=== PATIENT | female | born 1960 | race Hispanic/Latino ===

== ENCOUNTER 2020-03-08 18:39 | Inpatient (IN) | payer OTHER ==
[2020-03-08 19:24] LABS: Hemoglobin 14.6 g/dL (14.0-18.0); Mean Corpuscular HGB CONC 32.2 g/dL (32.0-36.0); Mean Corpuscular Hemoglobin 30.9 pg (27.0-31.0); Mean Corpuscular Volume 96.1 fL (78.0-98.0); Mean Platelet Volume 9.6 fL (7.4-10.4); Platelet Count 183 thou/uL (130-400); RBC Distribution Width 12.7 % (11.5-14.5); Red Blood Cell (RBC) Count 4.72 mill/uL (4.70-6.10); White Blood Cell (WBC) Count 3.9 thou/uL (4.8-10.8)
--- NOTE | 2020-03-08 19:24 | RAD ---
Portable frontal chest radiograph: 03/08/2020 COMPARISON: None HISTORY: Short of breath FINDINGS: Extensive interstitial and alveolar opacity noted in the perihilar regions and both lung ba ses, left greater than right. No pneumothorax or large volume pleural effusion. IMPRESSION: Perihilar and bibasilar interstitial prominence suggesting multi lobar pneumonia in the [facility] clinical setting. Findings may be related to Covid 19.
[2020-03-08 19:40] LABS: Band 7 % (5-11); Lymphocytes 36 % (21-51); MDiff Complete? YES; Monocytes 2 % (0-10); Neutrophil 54 % (42-75); Platelet Morphology Comment Appears Adequate; RBC Morphology Normal; Reactive Lymphocytes 1 % (0-10)
[2020-03-08] MEDS ORDERED: Acetaminophen 325 MG TAB PO PRN (19:41)
[2020-03-08 19:42] LABS: ALT (SGPT) 31 U/L (8-55); AST (SGOT) 65 U/L (5-34); Albumin 3.5 g/dL (3.5-5.0); Alkaline Phosphatase 81 U/L (40-110); Anion Gap 15 mmol/L (10-20); BUN (Urea Nitrogen) 14 mg/dL (8.4-25.7); Bilirubin, Total 0.6 mg/dL (0.2-1.2); Calc. Creatinine Clearance 0 mL/min (70-130); Calcium 8.5 mg/dL (7.8-10.44); Carbon Dioxide 25 mmol/L (22-29); Chloride 98 mmol/L (98-107); Estimated GFR-MDRD Greater than 90; Globulin 4.6 g/dL (2.4-3.5); Glucose 159 mg/dL (70-105); Potassium 4.6 mmol/L (3.5-5.1); Protein, Total 8.1 g/dL (6.0-8.3); Sodium 133 mmol/L (136-145)
[2020-03-08] MEDS ORDERED: Acetaminophen 650 MG Suppository PR PRN (22:21)
[2020-03-08 23:09] VITALS: BMI 37.7
[2020-03-08] MEDS: Famotidine 20 MG TAB PO SCH (23:14)
[2020-03-08] MEDS: cefTRIAXone\\ROCEPHIN 1 GM in Sodium Chloride 0.9% 100 ML IVPB SCH (23:14)
[2020-03-08] MEDS: Sodium Chloride 0.9% 1,000 ML IV SCH (23:14)
[2020-03-08] MEDS: Azithromycin 500 MG in Sodium Chloride 0.9% 250 ML 250 ML IVPB SCH (23:47)
[2020-03-09 05:29] LABS: Hemoglobin 13.7 g/dL (12.0-16.0); Mean Corpuscular HGB CONC 32.1 g/dL (32.0-36.0); Mean Corpuscular Hemoglobin 31.3 pg (27.0-31.0); Mean Corpuscular Volume 97.6 fL (78.0-98.0); Mean Platelet Volume 7.8 fL (7.4-10.4); Platelet Count 211 thou/uL (130-400); RBC Distribution Width 12.6 % (11.5-14.5); Red Blood Cell (RBC) Count 4.36 mill/uL (4.20-5.40); White Blood Cell (WBC) Count 3.3 thou/uL (4.8-10.8)
[2020-03-09 05:30] LABS: Band 8 % (5-11); Lymphocytes 50 % (21-51); MDiff Complete? YES; Monocytes 3 % (0-10); Neutrophil 39 % (42-75); Platelet Morphology Comment Appears Adequate
[2020-03-09 05:39] LABS: ALT (SGPT) 28 U/L (8-55); AST (SGOT) 52 U/L (5-34); Albumin 3.2 g/dL (3.5-5.0); Alkaline Phosphatase 74 U/L (40-110); Anion Gap 11 mmol/L (10-20); BUN (Urea Nitrogen) 14 mg/dL (9.8-20.1); Bilirubin, Total 0.4 mg/dL (0.2-1.2); Calc. Creatinine Clearance 117 mL/min (70-130); Calcium 8.2 mg/dL (7.8-10.44); Carbon Dioxide 31 mmol/L (22-29); Chloride 100 mmol/L (98-107); Estimated GFR-MDRD 78; Globulin 3.6 g/dL (2.4-3.5); Glucose 100 mg/dL (70-105); Potassium 3.9 mmol/L (3.5-5.1); Protein, Total 6.8 g/dL (6.0-8.3); Sodium 138 mmol/L (136-145)
--- NOTE | 2020-03-09 06:30 | HP ---
CHIEF COMPLAINT: Shortness of breath. HISTORY OF PRESENT ILLNESS: Ms. Mclain is a 59-year-old female with past medical history of hypertension, presents to the emergency room with shortness of breath for the last 2 days associated with fever and cough. Workup in the emergency room, patient was hypoxic with oxygen saturation 88% on room air. Placed on nasal cannula. Denies abdominal pain, vomiting, or diarrhea. Chest x-ray showed bilateral interstitial and perihilar infiltrates suggesting multilobar pneumonia, COVID-19 infection, viral is suspected. Septic workup done in the ED. COVID-19 swab was done in the emergency room. The patient was placed on oxygen. The patient is being admitted to the hospital for pneumonia, ? viral, hypoxic respiratory failure. PAST MEDICAL HISTORY: Hypertension. PAST SURGICAL HISTORY: Colon polyp. SOCIAL HISTORY: No history of smoking, alcohol drinking, or drug abuse. FAMILY HISTORY: Reviewed and noncontributory. ALLERGIES: NO KNOWN ALLERGIES. HOME MEDICATIONS: Please see home medication reconciliation form for updated medications. REVIEW OF SYSTEMS: Review of 14 systems negative except what is mentioned in history of present illness. PHYSICAL EXAMINATION: GENERAL: The patient is awake, alert, in moderate respiratory distress, tachypneic. VITAL SIGNS: Blood pressure 136/77, pulse 86. Oxygen saturation was 88% on room air. Currently, it is 96% on 2 L/minute nasal cannula. Respiratory rate is 28, pulse is 90. HEAD AND NECK: Normocephalic, atraumatic. NECK: Supple. CHEST: Respirations are labored, decreased air entry bilaterally. HEART: S1, S2. Regular. ABDOMEN: Soft, nontender. Bowel sounds present. NEUROLOGIC: Awake, alert. No focal deficits. PSYCHIATRIC: Psych unable to assess. EXTREMITIES: No clubbing, no cyanosis. GENITOURINARY: No suprapubic tenderness. No flank tenderness. MUSCULOSKELETAL: No joint deformity. No joint tenderness. LABORATORY DATA: WBC count is low at 3.9. The differential is still pending. Complete metabolic panel is still pending at the time of this dictation. Chest x-ray as mentioned above in history of present illness. ASSESSMENT AND PLAN: 1. Acute hypoxic respiratory failure. 2. Pneumonia, viral, suspected COVID-19 infection. 3. Leukopenia. 4. Hypertension. PLAN: 1. Admit. 2. Oxygen to keep saturation more than 92%. 3. Septic workup done in the ED, COVID-19 swab done. 4. Oxygen to keep saturation more than 94%. 5. We will start the patient on IV antibiotics, cannot rule out superimposed bacterial infection. 6. Reconcile home medications. 7. DVT prophylaxis as appropriate. 8. Expected length of stay, 2 midnights or more. Job ID: [id number]
[2020-03-09] MEDS: Enoxaparin Sodium 40 MG/0.4 ML SYRINGE SC SCH (08:36)
[2020-03-09] MEDS: Sodium Chloride 0.9% 1,000 ML IV SCH ×2 (08:36→19:35)
[2020-03-09] MEDS: Famotidine 20 MG TAB PO SCH ×2 (08:36→19:36)
[2020-03-09] MEDS ORDERED: Cefepime 2 GM in Sodium Chloride 0.9% 100 ML IVPB SCH (09:00)
[2020-03-09] MEDS ORDERED: Vancomycin HCl 1 GM in Sodium Chloride 0.9% 250 ML 300 ML IVPB SCH (09:00)
[2020-03-09 10:43] LABS: SARS-CoV-2 MS2 Positive; SARS-CoV-2 N Gene Positive; SARS-CoV-2 S Gene Positive; SARS-CoV-2 orf1ab Positive
--- NOTE | 2020-03-09 14:43 | PDOC.HOSPP ---
- Subjective Encounter Date: 03/09/20 Encounter Time: 13:00 Subjective: The patient reports feeling very tired. She also complains of dizziness when she tries to stand up to walk. She has mild productive cough with phlegm, no significant congestion. She reports her spouse and another relative tested positive for coronavirus The patient states her symptoms have been going on for 8 days - Objective Vital Signs & Weight: Vital Signs (12 hours) Temp Pulse Resp BP Pulse Ox 03/09/20 12:00 98.8 F 68 24 H 121/67 94 L 03/09/20 08:36 98.2 F 67 26 H 120/72 92 L 03/09/20 03:45 98.9 F 71 16 112/66 99 Weight Admit Weight 199 lb 8 oz Weight 199 lb 8 oz I&O: 03/08/20 03/09/20 03/10/20 06:59 06:59 06:59 Intake Total 1580 Balance 1580 Result Diagrams: 03/09/20 04:53 03/09/20 04:53 Hospitalist ROS - Medication Medications: Active Medications Generic Name Dose Route Start Last Admin Trade Name Wilmerq PRN Reason Stop Dose Admin Enoxaparin Sodium 40 mg 03/09/20 09:00 03/09/20 08:36 Lovenox SC 40 mg 0900 ZOË Administration Famotidine 20 mg 03/08/20 21:00 03/09/20 08:36 Pepcid PO 20 mg BID ZOË Administration Azithromycin 500 mg/ Sodium 250 mls @ 250 mls/hr 03/08/20 21:00 03/08/20 23: 47 Chloride IVPB 250 mls Q24HR ZOË Administration Ceftriaxone Sodium 1 gm/ 100 mls @ 200 mls/hr 03/08/20 20:00 03/08/20 23:14 Sodium Chloride IVPB 100 mls Q24HR ZOË Administration Sodium Chloride 1,000 mls @ 100 mls/hr 03/08/20 22:30 03/09/20 08:36 Normal Saline 0.9% IV 1,000 mls .Q10H ZOË Administration - Exam General Appearance: NAD, awake alert Eye: PERRL, anicteric sclera ENT: normocephalic atraumatic, no oropharyngeal lesions Neck: no JVD Heart: RRR, no murmur, no gallops, no rubs Respiratory: CTAB, no wheezes, no rales Gastrointestinal: soft, non-tender, non-distended, normal bowel sounds Extremities: no cyanosis, no clubbing, no edema Hosp A/P - Plan This is a 59 year old female who presented with multilobar pneumonia #Acute hypoxic respiratory failure secondary to multilobar pneumonia #COVID + #Leukopenia secondary to COVID - chest X ray shows multifocal pneumonia. Patient is COVID + - continue ceftriaxone and azithromycin. WBC 3.3 - blood cultures negative. Check sputum culture - wean oxygen saturation to 92% Dizziness - check orthostatics - continue IV fluids - PT evaluation Transaminitis - downtrending, continue to monitor Hyponatremia - resolved Code status: full code
[2020-03-09] MEDS: cefTRIAXone\\ROCEPHIN 1 GM in Sodium Chloride 0.9% 100 ML IVPB SCH (19:35)
[2020-03-09] MEDS: Azithromycin 500 MG in Sodium Chloride 0.9% 250 ML 250 ML IVPB SCH (22:00)
[2020-03-10 06:13] LABS: Hemoglobin 12.9 g/dL (12.0-16.0); Mean Corpuscular HGB CONC 32.5 g/dL (32.0-36.0); Mean Corpuscular Hemoglobin 31.8 pg (27.0-31.0); Mean Corpuscular Volume 97.6 fL (78.0-98.0); Mean Platelet Volume 8.2 fL (7.4-10.4); Platelet Count 207 thou/uL (130-400); RBC Distribution Width 12.5 % (11.5-14.5); Red Blood Cell (RBC) Count 4.07 mill/uL (4.20-5.40); White Blood Cell (WBC) Count 2.9 thou/uL (4.8-10.8)
[2020-03-10 06:34] LABS: Anion Gap 11 mmol/L (10-20); BUN (Urea Nitrogen) 8 mg/dL (9.8-20.1); Calc. Creatinine Clearance 143 mL/min (70-130); Calcium 7.8 mg/dL (7.8-10.44); Carbon Dioxide 25 mmol/L (22-29); Chloride 108 mmol/L (98-107); Estimated GFR-MDRD Greater than 90; Glucose 85 mg/dL (70-105); Potassium 3.9 mmol/L (3.5-5.1); Sodium 140 mmol/L (136-145)
[2020-03-10] MEDS: Sodium Chloride 0.9% 1,000 ML IV SCH ×2 (07:54→23:27)
[2020-03-10] MEDS: Enoxaparin Sodium 40 MG/0.4 ML SYRINGE SC SCH ×2 (07:55→19:23)
[2020-03-10] MEDS: Famotidine 20 MG TAB PO SCH ×2 (07:55→19:23)
[2020-03-10 12:35] LABS: PTT 46.3 sec (22.9-36.1); Prothrombin Time 12.7 sec (12.0-14.7)
[2020-03-10 12:36] LABS: D-Dimer Test 1.21 *mcg/mL (0.27-0.43)
[2020-03-10] MEDS ORDERED: Non-Formulary Item 1 EACH in Sodium Chloride 0.9% 250 ML 210 ML IV SCH (13:00)
--- NOTE | 2020-03-10 14:04 | PDOC.HOSPP ---
- Subjective Encounter Date: 03/10/20 Encounter Time: 11:40 Subjective: pt seen -- she is resting, hypoxic when comes off O2. 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 COVID +ve, talk to Dr. Vernon will dc IV abx -starting her on Remdesivir. - Objective Vital Signs & Weight: Vital Signs (12 hours) Temp Pulse Resp BP BP Pulse Ox 03/10/20 11:35 98.2 F 63 24 H 154/85 H 94 L 03/10/20 07:55 98.5 F 62 20 156/88 H 94 L 03/10/20 03:46 97.8 F 63 18 136/80 95 Weight Admit Weight 199 lb 8 oz Weight 199 lb 8 oz I&O: 03/09/20 03/10/20 03/11/20 06:59 06:59 06:59 Intake Total 1580 2180 Balance 1580 2180 Result Diagrams: 03/10/20 05:45 03/10/20 05:45 Hospitalist ROS - Medication Medications: Active Medications Generic Name Dose Route Start Last Admin Trade Name Freq PRN Reason Stop Dose Admin Famotidine 20 mg 03/08/20 21:00 03/10/20 07:55 Pepcid PO 20 mg BID ZOË Administration Sodium Chloride 1,000 mls @ 100 mls/hr 03/08/20 22:30 03/10/20 07:54 Normal Saline 0.9% IV 1,000 mls .Q10H ZOË Administration Non-Formulary Medication 1 250 mls @ 250 mls/hr 03/10/20 13:00 03/10/20 13:52 each/ Sodium Chloride IV 03/10/20 13:59 250 mls ONE ZOË Administration - Exam General Appearance: NAD, awake alert Eye: PERRL ENT: normocephalic atraumatic Respiratory: normal chest expansion Psychiatric: A&O x 3 Hosp A/P - Plan #Acute hypoxic respiratory failure secondary to multilobar pneumonia #COVID + #Leukopenia secondary to COVID -transamitis - chest X ray shows multifocal pneumonia. Patient is COVID + - started remdesivir, lovenox -no need for CTX, zithro - blood cultures negative. Check sputum culture --fw on LFT, coag, d-dimer and Cr level - wean oxygen saturation to 92% -clinical monitoring on sats closely. -appreciate mary alice ehlp from DR. Vernon - if she is clinically degression, will consult him. Dizziness - check orthostatics - continue IV fluids - PT evaluation Hyponatremia - resolved Code status: full code
--- NOTE | 2020-03-10 21:41 | CON ---
DATE OF CONSULTATION: 03/10/2020 REASON FOR CONSULTATION: COVID-19 pneumonia. HISTORY OF PRESENT ILLNESS: A 59-year-old, who has a history of obesity and colon polyps removed, who developed persistent cough, some dyspnea since Thursday before last. So she was eventually evaluated together with her elderly relatives with home she lives in [place] and all three tested positive for COVID and she developed worsening dyspnea, was admitted. On admission; her temperature was 100.5, O2 saturations were 90% on room air, and respiratory rate was 28. She had bilateral pulmonary infiltrates. On arrival, she was given azithromycin and Rocephin, so this is the seventh day after development of symptoms, seventh to going on the eighth day. Still coughing, but not as much. No headaches. She has a lack of taste or anosmia, some dyspnea. No chest pain. No abdominal pain. Some diarrhea. No genitourinary symptoms. No joint symptoms. Myalgias are noticeable. PAST MEDICAL HISTORY: Obesity, colon polyps, and hypertension. 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 Never smoker. ALLERGIES: NONE. MEDICATIONS: Had been on losartan. CURRENT MEDICATIONS: 1. She has been on Rocephin and azithromycin, which has been discontinued and she is currently started on Remdesivir. 2. Also on Lovenox. 3. Pepcid. PHYSICAL EXAMINATION: VITAL SIGNS: T-max 98.5, blood pressure 148/81, pulse 61, respirations 20 to 24 , O2 saturations on 2 L 94% to 95%. GENERAL: Does appear in distress. She was able to speak in full sentences. SKIN: No skin lesions. No lymphadenopathy. HEENT: Ocular movements conjugate. Oral cavity normal. NECK: Supple. LUNGS: With a few faint crackles in both lung mckeon. HEART: S1 and S2. Regular rate. No S3 or S4. ABDOMEN: Soft and not distended or tender. No ascites. No bladder distention. EXTREMITIES: No joint inflammatory activity. Moves extremities equally. LABORATORY DATA: White cell count is 3.9 on arrival, hemoglobin 14.6, and platelets 183 and now white cell count of 2.9, hemoglobin 12.9, and platelets 207. D- dimer is 1.21 today first time it was measured and the ferritin is 283 and CRP first time measured was 4.40. COVID-19 was positive. Two sets of blood cultures, no growth 48 hours and the chest x-ray with perihilar bibasilar interstitial prominence, multilobar pneumonia likely. ASSESSMENT AND PLAN: Hypertension, obesity, and COVID-19 pneumonia. She has a moderately severe process with O2 saturations less than 93 on room air. Some elevation in inflammatory markers and D-dimer. The patient has been started on Remdesivir and will follow through the protocol. Discontinue azithromycin and Rocephin. Monitor inflamm markers and D-dimer, Osats. Job ID: [id number] [facility]
[2020-03-11] MEDS ORDERED: Benzonatate 100 MG CAP PO PRN (01:06)
[2020-03-11] MEDS ORDERED: Acetaminophen 650 MG Suppository PR PRN (01:07)
[2020-03-11] MEDS ORDERED: Acetaminophen 325 MG TAB PO PRN (01:07)
[2020-03-11 05:01] LABS: D-Dimer Test 1.08 *mcg/mL (0.27-0.43); Prothrombin Time 12.7 sec (12.0-14.7)
[2020-03-11 05:07] LABS: ALT (SGPT) 36 U/L (8-55); AST (SGOT) 51 U/L (5-34); Alkaline Phosphatase 72 U/L (40-110); Bilirubin, Direct 0.2 mg/dL (0.1-0.3); Bilirubin, Total 0.4 mg/dL (0.2-1.2); CRP (Inflammatory) 3.54 mg/dL (= or < 0.5); Protein, Total 6.4 g/dL (6.0-8.3)
[2020-03-11] MEDS: Famotidine 20 MG TAB PO SCH ×2 (08:22→19:26)
[2020-03-11] MEDS: Enoxaparin Sodium 40 MG/0.4 ML SYRINGE SC SCH ×2 (08:23→19:25)
[2020-03-11] MEDS: Sodium Chloride 0.9% 1,000 ML IV SCH ×3 (09:39→21:45)
[2020-03-11] MEDS: Non-Formulary Item 1 EACH in Sodium Chloride 0.9% 250 ML 230 ML IV SCH (12:21)
[2020-03-11] MEDS: hydrALAZINE 20 MG/ML VIAL SLOW IVP PRN (12:33)
[2020-03-11] MEDS ORDERED: hydrALAZINE 25 MG TAB PO SCH ×2 (15:00→15:30)
--- NOTE | 2020-03-11 15:27 | PDOC.HOSPP ---
- Subjective Encounter Date: 03/11/20 Encounter Time: 03:00 Subjective: pt seen, still she does not have mask on her. 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 Northern Irish speaking only. She has mild short of breath when getting up to use the rest room, and some cough. otherwise feels good. - Objective Vital Signs & Weight: Vital Signs (12 hours) Temp Pulse Resp BP BP Pulse Ox 03/11/20 12:33 57 L 03/11/20 12:00 97.8 F 56 L 18 167/85 H 97 03/11/20 08:00 97.9 F 57 L 20 181/85 H 95 03/11/20 04:06 94 L 03/11/20 03:50 98 F 58 L 19 150/83 H 96 Weight Admit Weight 199 lb 8 oz Weight 199 lb 8 oz I&O: 03/10/20 03/11/20 03/12/20 06:59 06:59 06:59 Intake Total 2180 3939 Balance 2180 3939 Result Diagrams: 03/10/20 05:45 03/10/20 05:45 Hospitalist ROS - Medication Medications: Active Medications Generic Name Dose Route Start Last Admin Trade Name Freq PRN Reason Stop Dose Admin Enoxaparin Sodium 40 mg 03/10/20 21:00 03/11/20 08:23 Lovenox SC 40 mg BID ZOË Administration Famotidine 20 mg 03/08/20 21:00 03/11/20 08:22 Pepcid PO 20 mg BID ZOË Administration Hydralazine HCl 10 mg 03/11/20 10:32 03/11/20 12:33 Apresoline SLOW IVP 10 mg Q4H PRN Administration Blood Pressure SBP>150 Sodium Chloride 1,000 mls @ 100 mls/hr 03/08/20 22:30 03/11/20 09:39 Normal Saline 0.9% IV 1,000 mls .Q10H ZOË Administration Non-Formulary Medication 1 250 mls @ 250 mls/hr 03/11/20 13:00 03/11/20 12:21 each/ Sodium Chloride IV 03/14/20 13:59 250 mls Q24H ZOË Administration Sodium Chloride 10 ml 03/10/20 21:00 03/11/20 08:23 Flush - Normal Saline IVF 10 ml Q12HR ZOË Administration - Exam General Appearance: NAD, awake alert Eye: PERRL Neck: symmetric Respiratory: normal chest expansion Psychiatric: normal affect, normal behavior, A&O x 3 Hosp A/P - Plan #Acute hypoxic respiratory failure secondary to multilobar pneumonia #COVID + #Leukopenia secondary to COVID -transamitis - chest X ray shows multifocal pneumonia. Patient is COVID + - started remdesivir, lovenox -no need for CTX, zithro - blood cultures negative. Check sputum culture --fw on LFT, coag, d-dimer and Cr level - wean oxygen saturation to 92% -clinical monitoring on sats closely. -appreciate mary alice ehlp from DR. Vernon - if she is clinically degression, will consult him. Dizziness - check orthostatics - continue IV fluids - PT evaluation Hyponatremia - resolved 31st sats 97% with 2 Lil O2 PTT and d-dimer level trending down. Leukopenia getting worse. -cw current treatment of remdesivir -guaifenesin -am labs for PTT, d-dimer, CRP, LFT. -Dr. Vernon following w.. us. HTN - BP up -PRN not helping -scheduled hydralazine tid. Code status: full code
[2020-03-11] MEDS: guaiFENesin 200 MG TAB PO SCH ×2 (18:50→19:26)
[2020-03-11] MEDS: hydrALAZINE 25 MG TAB PO SCH (19:26)
[2020-03-12] MEDS: guaiFENesin 200 MG TAB PO SCH ×6 (02:30→20:44)
[2020-03-12] MEDS: hydrALAZINE 20 MG/ML VIAL SLOW IVP PRN (04:16)
[2020-03-12 05:32] LABS: Band 4 % (5-11); Hemoglobin 14.1 g/dL (12.0-16.0); Lymphocytes 68 % (21-51); MDiff Complete? YES; Mean Corpuscular HGB CONC 33.1 g/dL (32.0-36.0); Mean Corpuscular Hemoglobin 31.9 pg (27.0-31.0); Mean Corpuscular Volume 96.6 fL (78.0-98.0); Monocytes 2 % (0-10); Neutrophil 26 % (42-75); Platelet Count 128 thou/uL (130-400); Platelet Morphology Comment Appears Adequate; RBC Distribution Width 12.3 % (11.5-14.5); RBC Morphology Normal; Red Blood Cell (RBC) Count 4.41 mill/uL (4.20-5.40)
[2020-03-12] MEDS: Enoxaparin Sodium 40 MG/0.4 ML SYRINGE SC SCH ×2 (08:53→20:44)
[2020-03-12] MEDS: Famotidine 20 MG TAB PO SCH ×2 (08:53→20:45)
[2020-03-12] MEDS: hydrALAZINE 25 MG TAB PO SCH ×3 (08:54→20:44)
[2020-03-12] MEDS: Non-Formulary Item 1 EACH in Sodium Chloride 0.9% 250 ML 230 ML IV SCH (12:40)
--- NOTE | 2020-03-12 15:21 | PDOC.HOSPP ---
- Subjective Encounter Date: 03/12/20 Encounter Time: 15:10 Subjective: pt seen and she is talking in the phone. tentative discharge plan of been told. she understands [mauritanian only] - Objective Vital Signs & Weight: Vital Signs (12 hours) Temp Pulse Resp BP BP Pulse Ox 03/12/20 13:02 73 03/12/20 12:00 96.8 F L 68 28 H 160/86 H 93 L 03/12/20 08:54 73 03/12/20 08:00 98.0 F 75 24 H 164/89 H 93 L 03/12/20 04:44 73 140/81 03/12/20 04:16 77 03/12/20 04:10 98.2 F 70 14 165/91 H 96 Weight Admit Weight 199 lb 8 oz Weight 199 lb 8 oz I&O: 03/11/20 03/12/20 03/13/20 06:59 06:59 06:59 Intake Total 3939 1600 Balance 3939 1600 Result Diagrams: 03/12/20 04:49 03/10/20 05:45 Hospitalist ROS - Medication Medications: Active Medications Generic Name Dose Route Start Last Admin Trade Name Freq PRN Reason Stop Dose Admin Acetaminophen 650 mg 03/11/20 01:07 03/12/20 12:46 Tylenol PO 650 mg Q4H PRN Administration Headache/Fever/Mild Pain (1-3) Enoxaparin Sodium 40 mg 03/10/20 21:00 03/12/20 08:53 Lovenox SC 40 mg BID ZOË Administration Famotidine 20 mg 03/08/20 21:00 03/12/20 08:53 Pepcid PO 20 mg BID ZOË Administration Guaifenesin 200 mg 03/11/20 17:00 03/12/20 12:39 Organ-I Nr PO 03/13/20 17:01 200 mg Q4HR ZOË Administration Hydralazine HCl 10 mg 03/11/20 10:32 03/12/20 04:16 Apresoline SLOW IVP 10 mg Q4H PRN Administration Blood Pressure SBP>150 Hydralazine HCl 37.5 mg 03/11/20 21:00 03/12/20 13:02 Apresoline PO 37.5 mg TID ZOË Administration Sodium Chloride 1,000 mls @ 100 mls/hr 03/08/20 22:30 03/11/20 21:45 Normal Saline 0.9% IV 1,000 mls .Q10H ZOË Administration Non-Formulary Medication 1 250 mls @ 250 mls/hr 03/11/20 13:00 03/12/20 12:40 each/ Sodium Chloride IV 03/14/20 13:59 250 mls Q24H ZOË Administration Sodium Chloride 10 ml 03/10/20 21:00 03/12/20 08:53 Flush - Normal Saline IVF 10 ml Q12HR ZOË Administration - Exam General Appearance: NAD, awake alert Neck: symmetric Respiratory: normal chest expansion Psychiatric: A&O x 3 Hosp A/P - Plan #Acute hypoxic respiratory failure secondary to multilobar pneumonia #COVID + #Leukopenia secondary to COVID -transamitis - chest X ray shows multifocal pneumonia. Patient is COVID + - started remdesivir, lovenox -no need for CTX, zithro - blood cultures negative. Check sputum culture --fw on LFT, coag, d-dimer and Cr level - wean oxygen saturation to 92% -clinical monitoring on sats closely. -appreciate mary alice ehlp from DR. Vernon - if she is clinically degression, will consult him. Dizziness - check orthostatics - continue IV fluids - PT evaluation Hyponatremia - resolved sats 97% with 2 Lil O2 PTT and d-dimer level trending down. Leukopenia getting worse. -cw current treatment of remdesivir -guaifenesin -am labs for PTT, d-dimer, CRP, LFT. -Dr. Vernon following w.. us. HTN - BP up -PRN not helping -scheduled hydralazine tid. Code status: full code 1st i believe remdesvir infusion until . consistently persistent leukopenia -ordered for am, ptt, sofy and crp for routine monitoring.
--- NOTE | 2020-03-12 15:32 | PRG ---
DATE OF SERVICE: 03/12/2020 SUBJECTIVE: Doing well. Coughing less. No dyspnea. No headaches. No diarrhea. OBJECTIVE: VITAL SIGNS: She has been afebrile, O2 saturations are 93 with 2 L nasal cannula. LUNGS: Clear. HEART: S1 and S2, regular rate. ABDOMEN: Soft, not distended. LABORATORY DATA: White cell count 3.0, hemoglobin 14, and platelets 128. Liver panel fairly unremarkable. Ferritin is at 254. D-dimer 1.08. C-reactive protein is at 3.54. DISCUSSION: This is going to be her second day of remdesivir. I have discussed with the patient remdesivir emergency use authorization and obtained her consent to administer the drug yesterday. I explained the potential side effects, particularly in terms of liver toxicity, as well as the benefits, particularly the reduction in event of illness. There is a potential mortality benefit as well, but that has not yet been proven beyond reasonable doubt. She understood and agreed with the medication administration. Job ID: [id number]
[2020-03-12] MEDS: Sodium Chloride 0.9% 1,000 ML IV SCH (17:26)
--- NOTE | 2020-03-12 18:14 | PQF ---
CLINICAL DOCUMENTATION IMPROVEMENT CLARIFICATION FORM: ICD-10 Updated PLEASE DO AN ADDENDUM TO THE PROGRESS NOTE WITH ANY DOCUMENTATION UPDATES OR ADDITIONS AND CARRY THROUGH TO DC SUMMARY. THANK YOU. DATE: 03/12/2020 ATTN: Dr. Cooney Please exercise your independent, professional judgment in responding to the clarification form. Clinical indicators are provided on the bottom of this form for your review Please check appropriate box(es): [ ] Sepsis present on admission [ ] Sepsis NOT present on admission [ ] Unable to determine Due to: [ ] Severe sepsis present on admission [ ] Severe Sepsis NOT present on admission [ ] Unable to determine with acute organ dysfunction of: [ ] Localized infection without sepsis [ x] Other diagnosis _penumonia and stable -- could not code for sepsis -- inflammatory syndrome [ ] Unable to determine For continuity of documentation, please document condition throughout progress notes and discharge summary. Thank You. CLINICAL INDICATORS - SIGNS / SYMPTOMS / LABS / RESULTS AND LOCATION IN MR ER Record 03/08: VS: Temp. 100.5, Resp 23. O2 sat 90 on Room Air H&P 03/08: pt was hypoxic with oxygen saturation 88% on RA Lab: WBC 3.9 A/P: Acute hypoxic respiratory failure. Pneumonia viral, suspected COVID-19 infection. Septic workup done in ED 03/11 ([place]) Acute hypoxic respiratory failure secondary to multilobar pneumonia COVID + RISKS: H&P 03/08: Acute hypoxic respiratory failure. Pneumonia. 03/10 ([place]) Hypertension, obesity and COVID-19 pneumonia. TREATMENT: Order 03/08: Resp: O2 to keep sats 94 % Order 03/08-03/10: Zithromax 500mg IV q 24 hr ID Consult: 03/10 MAR 03/10: Remdesivir 100mg IV q 24 hr Thank you, Shayy (This form is maintained as a part of the permanent medical record) 2014 [employer]. All Rights Reserved Shayy Purvis RN, BSN [email or web address] [employer] [facility]
[2020-03-13] MEDS: Sodium Chloride 0.9% 1,000 ML IV SCH ×3 (00:41→16:16)
[2020-03-13] MEDS: guaiFENesin 200 MG TAB PO SCH ×5 (00:41→16:18)
[2020-03-13 04:50] LABS: #Lymphocytes 1.7 thou/uL (1.20-3.40); #Monocytes 0.3 thou/uL (0.11-0.59); #Neutrophils 1.9 thou/uL (1.40-6.50); %Basophils 0.9 % (0.0-1.0); %Eosinophils 0.5 % (0.0-10.0); %Lymphocytes 43.2 % (21.0-51.0); %Monocytes 6.2 % (0.0-10.0); %Neutrophils 49.1 % (42.0-75.0); Hemoglobin 13.9 g/dL (12.0-16.0); Mean Corpuscular HGB CONC 32.7 g/dL (32.0-36.0); Mean Platelet Volume 8.3 fL (7.4-10.4); Platelet Count 299 thou/uL (130-400); RBC Distribution Width 12.6 % (11.5-14.5); Red Blood Cell (RBC) Count 4.47 mill/uL (4.20-5.40); White Blood Cell (WBC) Count 3.9 thou/uL (4.8-10.8)
[2020-03-13 04:57] LABS: Anion Gap 11 mmol/L (10-20); BUN (Urea Nitrogen) 6 mg/dL (9.8-20.1); Calc. Creatinine Clearance 143 mL/min (70-130); Calcium 8.2 mg/dL (7.8-10.44); Carbon Dioxide 26 mmol/L (22-29); Chloride 104 mmol/L (98-107); Estimated GFR-MDRD Greater than 90; Glucose 106 mg/dL (70-105); Potassium 3.3 mmol/L (3.5-5.1); Sodium 138 mmol/L (136-145)
[2020-03-13 05:04] LABS: ALT (SGPT) 29 U/L (8-55); AST (SGOT) 34 U/L (5-34); Albumin 3.2 g/dL (3.5-5.0); Alkaline Phosphatase 68 U/L (40-110); Bilirubin, Direct 0.3 mg/dL (0.1-0.3); Bilirubin, Total 0.5 mg/dL (0.2-1.2); Protein, Total 6.7 g/dL (6.0-8.3)
[2020-03-13] MEDS: hydrALAZINE 25 MG TAB PO SCH ×3 (07:51→20:21)
[2020-03-13] MEDS: Famotidine 20 MG TAB PO SCH ×2 (07:52→20:20)
[2020-03-13] MEDS: Enoxaparin Sodium 40 MG/0.4 ML SYRINGE SC SCH ×2 (07:52→20:21)
[2020-03-13] MEDS ORDERED: Potassium Chloride 20 MEQ TAB PO SCH (08:00)
[2020-03-13 08:35] LABS: INR-International Normal Ratio 1.1; Prothrombin Time 14.5 sec (12.0-14.7)
[2020-03-13] MEDS: Non-Formulary Item 1 EACH in Sodium Chloride 0.9% 250 ML 230 ML IV SCH (13:46)
--- NOTE | 2020-03-13 15:34 | PDOC.HOSPP ---
- Subjective Encounter Date: 03/13/20 Encounter Time: 15:30 Subjective: pt doing well, as before, talking in the phone. not in any respi distress. ambulating without sob. crp trending down. - Objective Vital Signs & Weight: Vital Signs (12 hours) Temp Pulse Resp BP Pulse Ox 03/13/20 12:00 97.6 F 78 16 146/81 H 96 03/13/20 08:00 97.0 F L 76 20 137/86 97 03/13/20 04:10 97.6 F 78 20 138/80 94 L Weight Admit Weight 199 lb 8 oz Weight 199 lb 8 oz I&O: 03/12/20 03/13/20 03/14/20 06:59 06:59 06:59 Intake Total 1600 2720 Balance 1600 2720 Result Diagrams: 03/13/20 04:15 03/13/20 04:15 Hospitalist ROS - Medication Medications: Active Medications Generic Name Dose Route Start Last Admin Trade Name Freq PRN Reason Stop Dose Admin Acetaminophen 650 mg 03/11/20 01:07 03/12/20 12:46 Tylenol PO 650 mg Q4H PRN Administration Headache/Fever/Mild Pain (1-3) Enoxaparin Sodium 40 mg 03/10/20 21:00 03/13/20 07:52 Lovenox SC 40 mg BID ZOË Administration Famotidine 20 mg 03/08/20 21:00 03/13/20 07:52 Pepcid PO 20 mg BID ZOË Administration Guaifenesin 200 mg 03/11/20 17:00 03/13/20 07:53 Organ-I Nr PO 03/13/20 17:01 200 mg Q4HR ZOË Administration Hydralazine HCl 10 mg 03/11/20 10:32 03/12/20 04:16 Apresoline SLOW IVP 10 mg Q4H PRN Administration Blood Pressure SBP>150 Hydralazine HCl 37.5 mg 03/11/20 21:00 03/13/20 07:51 Apresoline PO 37.5 mg TID ZOË Administration Sodium Chloride 1,000 mls @ 100 mls/hr 03/08/20 22:30 03/13/20 12:31 Normal Saline 0.9% IV Not Given .Q10H ZOË Non-Formulary Medication 1 250 mls @ 250 mls/hr 03/11/20 13:00 06/02/20 13:46 each/ Sodium Chloride IV 03/14/20 13:59 250 mls Q24H ZOË Administration Sodium Chloride 10 ml 03/10/20 21:00 03/13/20 08:10 Flush - Normal Saline IVF Not Given Q12HR ZOË - Exam General Appearance: NAD, awake alert Eye: PERRL ENT: normocephalic atraumatic Neck: supple Respiratory: normal chest expansion Neurological: no focal deficits Psychiatric: normal affect, normal behavior, A&O x 3 Hosp A/P - Plan #Acute hypoxic respiratory failure secondary to multilobar pneumonia #COVID + #Leukopenia secondary to COVID -transamitis - chest X ray shows multifocal pneumonia. Patient is COVID + - started remdesivir, lovenox -no need for CTX, zithro - blood cultures negative. Check sputum culture --fw on LFT, coag, d-dimer and Cr level - wean oxygen saturation to 92% -clinical monitoring on sats closely. -appreciate mary alice ehlp from DR. Vernon - if she is clinically degression, will consult him. Dizziness - check orthostatics - continue IV fluids - PT evaluation Hyponatremia - resolved sats 97% with 2 Lil O2 PTT and d-dimer level trending down. Leukopenia getting worse. -cw current treatment of remdesivir -guaifenesin -am labs for PTT, d-dimer, CRP, LFT. -Dr. Vernon following w.. us. HTN - BP up -PRN not helping -scheduled hydralazine tid. Code status: full code 1st i believe remdesvir infusion until 3rd. consistently persistent leukopenia -ordered for am, ptt, sofy and crp for routine monitoring. 2nd - will dc O2 by [place] and monitor her pulse ox closely - will get d-dimer, crp and ferritin for 4th. -last day for remdesivir infusion - -pt has been informed that likely to be discharged on or thursday if she cont'd to be stable.
[2020-03-13] MEDS ORDERED: guaiFENesin 200 MG TAB PO PRN (17:30)
[2020-03-14] MEDS: Sodium Chloride 0.9% 1,000 ML IV SCH ×2 (02:39→14:32)
[2020-03-14 04:57] LABS: Band 9 % (5-11); Eosinophils 1 % (0-10); Hemoglobin 13.8 g/dL (12.0-16.0); Lymphocytes 7 % (21-51); MDiff Complete? YES; Mean Corpuscular HGB CONC 34.6 g/dL (32.0-36.0); Mean Corpuscular Hemoglobin 33.1 pg (27.0-31.0); Mean Corpuscular Volume 95.5 fL (78.0-98.0); Mean Platelet Volume 7.8 fL (7.4-10.4); Monocytes 4 % (0-10); Neutrophil 79 % (42-75); Platelet Count 285 thou/uL (130-400); Platelet Morphology Comment Appears Adequate; RBC Distribution Width 12.6 % (11.5-14.5); RBC Morphology Normal; Red Blood Cell (RBC) Count 4.17 mill/uL (4.20-5.40); White Blood Cell (WBC) Count 3.2 thou/uL (4.8-10.8)
[2020-03-14 05:07] LABS: Anion Gap 11 mmol/L (10-20); BUN (Urea Nitrogen) 10 mg/dL (9.8-20.1); Calc. Creatinine Clearance 141 mL/min (70-130); Calcium 8.3 mg/dL (7.8-10.44); Carbon Dioxide 26 mmol/L (22-29); Chloride 106 mmol/L (98-107); Estimated GFR-MDRD Greater than 90; Glucose 98 mg/dL (70-105); Potassium 3.5 mmol/L (3.5-5.1); Sodium 139 mmol/L (136-145)
[2020-03-14] MEDS: Enoxaparin Sodium 40 MG/0.4 ML SYRINGE SC SCH (09:36)
[2020-03-14] MEDS: hydrALAZINE 25 MG TAB PO SCH ×2 (09:37→14:57)
[2020-03-14] MEDS: Famotidine 20 MG TAB PO SCH (09:39)
[2020-03-14] MEDS: Non-Formulary Item 1 EACH in Sodium Chloride 0.9% 250 ML 230 ML IV SCH (12:53)
--- NOTE | 2020-03-14 14:05 | DIS ---
DATE OF ADMISSION: 03/08/2020 DATE OF DISCHARGE: DISCHARGE MEDICATION: Cozaar 100 mg daily. DISCHARGE DIAGNOSES: 1. COVID positive, being treated with remdesivir for 5 days. 2. Acute hypoxic respiratory failure secondary to multilobar pneumonia. 3. Leukopenia secondary to COVID. 4. Transaminitis due to COVID. 5. Dizziness, probably dehydration and pneumonia contributing. 6. Hyponatremia, resolved. CONSULT: Dr. Vernon, Infectious Disease. PERTINENT LABS ON THE DAY OF DISCHARGE: White count 3.2, consistently on the low side, ranging from 3.9 to 3.2 during her entire stay of 6 days duration. Her CRP improved from 4.40 to 2.2. Her ferritin level is 266. AST 34, ALT 29, alkaline phosphatase 68 on the day of discharge, and her coag, D-dimer improved from 1.2 to 0.94 and activated PTT improved from 46 to 36. PHYSICAL EXAM ON THE DAY OF DISCHARGE: VITAL SIGNS: Temperature 98.3, pulse 71, blood pressure 142/79, and saturating 95% on room air. GENERAL: The patient is quite stable. She is ambulating and she did not require any oxygen for the last few days. Limited exam is performed. She denies any cough today. Agreed with the discharge plan. Counseled on stay home and social isolation between family members at least for next 10 days. HOSPITAL COURSE: This is a 59-year-old female, admitted with multilobar pneumonia and leukopenia. Her presentation was consistent with COVID and serologies came back positive. Chest x-ray showed multifocal pneumonia. We started on remdesivir as well as Lovenox. Discontinued Zithromax and ceftriaxone, blood cultures were negative. We followed the LFT, D-dimer, as well as creatinine level. She was weaned off from oxygen and she is saturating well on room air and ambulating. Her saturations were around 95 on room air. Infectious Disease, Dr. Vernon followed with me. Her leukopenia remained stable in 3.0 range without getting worse. She is expected to follow up with her primary care physician. We finished a 5-day course of remdesivir with her. She has no fever in the last few days and saturations are good. Clinically getting better to be discharged home today. DISCHARGE INSTRUCTIONS: Activity as tolerated. Regular diet. Follow up with the primary care physician in 3 to 4 weeks. Please keep social distancing with your family members as well as if you are in public. Avoid going outside the house at least for next 2 weeks. Discharge time over 30 minutes. Job ID: [id number]
[2020-03-14 15:35] VITALS: BP 125/83; TEMP 97.7
--- NOTE | 2020-03-17 14:20 | EKG ---
Test Reason : Blood Pressure : / mmHG Vent. Rate : 090 BPM Atrial Rate : 090 BPM P-R Int : 118 ms QRS Dur : 094 ms QT Int : 370 ms P-R-T Axes : 019 072 046 degrees QTc Int : 452 ms Normal sinus rhythm Normal ECG Confirmed by TONJA CEJA, JORDY Lacey ([id number]), medical editor GEMINI BONNER ([id number] on 03/17/2020 2:19:38 PM Referred By: Confirmed By:JORDY EVANGELISTA MD
== END 2020-03-14 16:15 | disposition home or self-care (01) | DRG 177 ==
LOC: ERS 18:39 → EDSEX 19:57 → 2SW 19:57
PROVIDERS: ADMIT Internal Medicine; ATTEND Internal Medicine
PROC: 8E0ZXY6 Isolation (ICD-10-PCS; principal; 2020-03-08)
DX: U07.1 COVID-19 (principal); J96.01 Acute respiratory failure with hypoxia; J18.9 Pneumonia, unspecified organism; E87.1 Hypo-osmolality and hyponatremia; R74.0 Nonspecific elevation of levels of transaminase and lactic acid dehydrogenase [LDH]; E86.0 Dehydration; I10 Essential (primary) hypertension; K63.5 Polyp of colon; E66.9 Obesity, unspecified; Z68.37 Body mass index [BMI] 37.0-37.9, adult
CPT/HCPCS: 36415; 71045; 80048; 80053; 80076; 82728; 83605; 85025; 85027; 85379; 85610; 85730; 86140; 87040; 87635; 93005; 94760; J0360; J0456; J0696; J1650; J3490; J7050; U0003